=== PATIENT | female | born 1965 | race Caucasian/White ===

== ENCOUNTER 2024-11-13 12:01 | Outpatient (AMB) | payer OTHER, SELFPAY ==
--- NOTE | 2024-11-13 12:13 | MHC.PC.OV ---
Vital Signs 11/13/24 12:18 Height 5 ft 2.32 in Weight 172 lb BMI 31.1 BP 124/74 Blood Pressure Location Lt brachial Position Sitting Pulse 78 Pulse Source Pulse Oximeter Pulse Oximetry (%) 95 Oxygen Delivery Method Room Air Intake Visit Reasons: est/need pcp/medication Allergies No Known Allergies Allergy (Verified 11/13/24 12:13) Dental Screening Dental Screen Date: 11/13/24 Did you have a dental visit in the last 12 months?: Yes Did you have a dental problem in the last 6 months where you did not have access to dental care?: No Was dental information given to patient?: Patient has dentist HPI HPI Comments History of Present Illness Details This is a 58-year-old female with a past medical history of dyslipidemia, generalized anxiety disorder and panic attacks presenting to [facility]. She transferred from [facility] . 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 She has 1 day a week off now. She was previously on Celexa which was ineffective. Wellbutrin was stopped, and she started venlafaxine earlier this year due to increased anxiety. She is on this and clonazepam 0.5 mg daily. This is working well. The earlier this year she had significant anxiety and panic attacks which were affecting the quality of her life. Because of this she would like to stay on the current regimen. She does not feel that she needs therapy or psychiatry consult right now. She endorses left shoulder pain for the past 6 months. It comes and goes. When she has the pain it is a 6/10. She describes it as soreness and aching. It bothers her more to lift her arm up. 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 It hurts more when she does this. Ibuprofen helps but does not completely alleviate the symptoms. There is no numbness, tingling or weakness in her arm. No neck pain. No trauma. Mammogram ordered. She would like to schedule a physical for another day. She will have fasting lab work done prior to this. She had a bone density exam in 2021. She reports it was normal, and she is not interested in repeating it right now. Order mammogram for [facility] Cologuard negative within the last 3 years per patient. Declines colonoscopy. ROS: Constitutional: No fevers or chills Musculoskeletal: See HPI Psychiatric: See HPI. Denies depression. Physical exam: Respiratory: Clear to auscultation. Cardiovascular: S1 S2 regular. No murmurs Psychiatric: Normal mood and affect Shoulders: Right: FROM. Nontender to palpation. Strength 5/5. Negative Speeds test. Negative empty can maneuver. No warmth, erythema, edema, ecchymosis or crepitus. Left: FROM. Tender AC joint. Strength 5/5. Negative Speeds test. Empty can maneuver produces left shoulder pain. No warmth, erythema, edema, ecchymosis or crepitus. [facility] Medical History (Updated 11/13/24 @ 13:52 by YOLA Bethea) Left shoulder pain Dyslipidemia Anxiety Surgical History (Updated 11/13/24 @ 12:22 by Dawn Petty CMA) Hx of tonsillectomy H/O section Family History (Updated 11/13/24 @ 12:25 by Dawn Petty CMA) Father Prostate cancer Heart attack Heart disease Kidney disease Mother H/O angioplasty Heart disease Cardiovascular disease Other Bipolar disorder FH: mental illness HTN (hypertension) Social History Housing: Other (mobile home for over 55) Patient Tobacco Use Status: Former Tobacco user Cigarette Packs Per Day: 1 Years Smoked: 20 e-Cigarette/Vaping Use: Never Used Second Hand Smoke Exposure: No service: No Current occupational status: employed 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 1. Little interest or pleasure in doing things: not at all 2. Feeling down, depressed, or hopeless: not at all 3. Trouble falling or staying asleep, or sleeping too much: several days 4. Feeling tired or having little energy: several days 5. Poor appetite or overeating: not at all 6. Feeling bad about yourself - or that you are a failure or have let yourself or your family down: not at all 7. Trouble concentrating on things, such as reading the newspaper or watching television: not at all 8. Moving or speaking so slowly that other people could have noticed. Or the opposite - being so fidgety or restless that you have been moving around a lot more than usual: not at all 9. Thoughts that you would be better off or of hurting yourself in some way: not at all Total score: 2 Source: Developed by Drs. Sage Almaraz, Cici Nunez, Demetrius Harris and colleagues, with an educational jovanny from [employer]. Thrive Questionnaire I am a: Patient What is your living situation today?: I have a steady place to live Within the past 12 months, did the food you bought not last and you didn't have the money to get more?: Never true Within the past 12 months, did you worry whether your food would run out before you got money to buy more?: Never true Do you have trouble paying for medicines?: No Do you have trouble getting transportation to medical appointments?: No Do you have trouble paying your heating and electricity bill?: No Do you have trouble taking care of your child, family member or friend?: No Do you have trouble with day-to-day activities such as bathing, preparing meals, shopping, managing finances, etc.?: No Are you currently unemployed and looking for a job?: No Are you interested in more education?: No Please select the resources that you would like help with: None Currently or been in a relationship where the following occur: No concerns reported THRIVE Score: 0 AUDIT C Alcohol Use Questionnaire (AUDIT-C) 1. How often do you have a drink containing alcohol?: Never (rarely) Total Score: 0 CAROL-7 AMB Questionnaire CAROL-7 Feeling nervous, anxious, or on edge: 1 = Several days Not being able to stop or control worryin = Several days Worrying too much about different things: 1 = Several days Trouble relaxin = Several days Being so restless that it is hard to sit still: 1 = Several days Becoming easily annoyed or irritable: 1 = Several days Feeling afraid as if something awful might happen: 0 = Not at all Total CAROL-7 score (0-4 normal; 5-9 mild; 10-14 moderate; 15-21 severe): 6 Source: Developed by Cici Quiroga Kurt Kroenke and colleagues, with an educational jovanny from [employer]. Physical exam (Primary Care) Vital Signs: Last Vital Signs Pulse 78 11/13/24 12:18 BP 124/74 11/13/24 12:18 Pulse Ox 95 11/13/24 12:18 Oxygen Delivery Method Room Air 11/13/24 12:18 BMI result Body Mass Index 31.1 Tobacco/Smoking Status: Tobacco use Status Patient Tobacco Use Status Former Tobacco user 11/13/24 12:21 e-Cigarette/Vaping Use Never Used 11/13/24 12:21 PHQ-9: PHQ-9 Score PHQ-9: Total score 2 11/13/24 12:21 Currently or been in a relationship where the following occur: No concerns reported Coding Level of Care Code New Pt Level 4 (94881) Complex EM visit Add On G2211 Diagnoses Anxiety F41.9 Left shoulder pain M25.512 Assessment & Plan Assessment & Plan (1) Anxiety: Code(s): F41.9 - Anxiety disorder, unspecified Category: Medical Plan: Continue current medications. We reviewed the long-term risks of clonazepam. We reviewed it as a habit-forming medication and not to drive, operate heavy machinery drink alcohol with this medication. I will have her sign a controlled substance contract at her next appointment. (2) Left shoulder pain: Code(s): M25.512 - Pain in left shoulder Category: Medical Plan: Reviewed differential including rotator cuff tendonitis and bursitis. She would like to try a short course of meloxicam and try to avoid heavy lifting when possible. She will do home exercises. If symptoms persist I recommend x-ray and referral to Orthopedics. Plan She will schedule her physical exam within the next month. She will have fasting labs done prior to the physical. Orders: Orders Complete Blood Count no Diff Today F41.9 - Anxiety disorder, unspecified, Z00.00 - Encounter for general adult medical examination without abnormal findings, Z13.6 - Encounter for screening for cardiovascular disorders TSH reflex Free T4 Today F41.9 - Anxiety disorder, unspecified, Z00.00 - Encounter for general adult medical examination without abnormal findings, Z13.6 - Encounter for screening for cardiovascular disorders MM screening mammo BI Today Z12.31 - Encounter for screening mammogram for malignant neoplasm of breast Comprehensive Met. Panel Today F41.9 - Anxiety disorder, unspecified, Z00.00 - Encounter for general adult medical examination without abnormal findings, Z13.6 - Encounter for screening for cardiovascular disorders Lipid Panel Today E78.5 - Hyperlipidemia, unspecified, F41.9 - Anxiety disorder, unspecified, Z00.00 - Encounter for general adult medical examination without abnormal findings, Z13.6 - Encounter for screening for cardiovascular disorders Drug Screen Urine Today Z02.83 - Encounter for blood-alcohol and blood-drug test Medications: New meloxicam 15 mg PO DAILY 14 tabs 0RF clonazepam 0.5 mg PO DAILY 30 tabs 0RF
[2024-11-13 12:18] VITALS: BP 124/74; PULSE 78; O2SAT 95; BMI 31.1
--- OUTSIDE RECORDS SUMMARY | 2024-11-13 13:57 | XMS_ITS | Data Portability ---
Author Organization YOLA Ramos [facility] [address] Address [address] [place] [address] Assessment No assessment recorded. Plan of Treatment Reminders Order Date Submit Date Provider Last Modified By Organization Details Last Modified Time Details Appointments None recorded. Lab None recorded. Referral None recorded. Procedures None recorded. Surgeries None recorded. Imaging None recorded. Medication Orders amoxicillin 875 mg-potassiu m clavulanate 125 mg tablet 2023 [id number], [address], [place], [id number], 20:29:05 Patient TargetsNo targets recorded. Patient Instructions Encounter Date Encounter Id Patient Instructions Last Modified By Organization Details Last Modified Time 06/01/2024 [id number] hearing loss: care instructions [email or web address] Not available 06/01/2024 20:28:59 Reason for Referral None Reported. Problems Name Problem SNOMED Code Status Onset Date Resolution Date Notes Provider Name and Address Organization Details Recorded Time Anxiety 35918950 Active HEENA ull[place], [place] - [facility] 4 20:04:52 Depressive disorder 14552594 Active HEENA GIORDANO null, [place] - [facility] 4 20:04:58 Decreased hearing 946940668 Active 024 Kateryna Roa NP [address], [address] , [place] - [facility] 4 20:22:53 Acute bilateral otitis media 380426787 Active 024 Kateryna Roa NP [address] [place], [address], [place] - [facility] 4 20:27:24 Problem Notes None recorded. Medical Equipment None Reported. Allergies No known drug allergies Medications Name Sig Start Date Stop Date Status Note LastModified by Organization Details LastModified Time amoxicillin 875 mg-potassium clavulanate 125 mg tablet Take 1 tablet every 12 hours by oral route for 10 days, for ear infectio n. 024 active Not Available Not Available Not Avai lable clonazepam active Not Available Not Av ailable Not Available Vitals Date Recorded Body height Body mass index (BMI) Body weight Oxygen saturation Oxygen saturation in Arterial blood by Pulse oximetry Heart rate Respiratory rate Body temperature Systolic blood pressure Diastolic blood pressure Provider Name and Address Organization Details Last Updated DateTime 4 160.02 cm 26.6 kg/m2 53543.8 6 g 98 % 98 % 83 /min 18 /min 98 [degF] 163 mm[Hg] 90 mm[Hg] HEENA GIORDANO [place] - [facility] 4 20:03:53 Social History None recorded. Functional Status None recorded. Mental Status None recorded. Family History Nothing Reported. Medical History No medical history recorded. Gynecological History Statement/Question Response LMP N/A Obstetrics History GPAL:G 0 P 0 0 0 0 Past Encounters Encounter ID Performer Location Encounter Start Date Encounter Closed Date Diagnosis/Indication Diagnosis SNOMED-CT Code Diagnosis ICD10 Code Diagnosis Note [id number] [address] [address] [address] 08/17/2017 15:09:26 08/17/2017 16:25:25 [id number] [facility] [address] [address] 08/10/2021 13:05:16 08/10/2021 14:35:30 [id number] [facility] [address] [address] 09/07/2022 15:14:33 09/07/2022 17:19:46 [id number] [address] [address] 03/14/2016 13:27:23 03/14/2016 13:58:29 [id number] Kateryna Roa, AZAM [address] [address] 06/01/2024 19:45:16 06/01/2024 20:29:14 Decreased hearing 475333817 H91.90 Avoid loud noises whenever possible. This helps keep your hearing from getting worse.Alwa ys wear hearing protection around loud noises.Wea r a hearing aid as directed.A profession al can help you pick a hearing aid that will work best for you.You can also get hearing aids over the counter for mild to moderate hearing loss.Have hearing tests as your doctor suggests. They can show whether your hearing has changed. Your hearing aid may need to be adjusted.U se other devices as needed. These may include:Te lephone amplifiers and hearing aids that can connect to a television , stereo, radio, or microphone .Devices that use lights or vibrations . These alert you to the doorbell, a ringing telephone, or a baby monitor.Te levision closed-cap tioning. This shows the words at the bottom of the screen. Most new TVs can do this.TTY (text telephone) . This lets you type messages back and forth on the telephone instead of talking or listening. These devices are also called TDD. When messages are typed on the keyboard, they are sent over the phone line to a receiving TTY. The message is shown on a monitor.Us e text messaging, social media, and email if it is hard for you to communicat e by telephone. Try to learn a listening technique called speechread ing. It is not lipreading . You pay attention to people's gestures, expression s, posture, and tone of voice. These clues can help you understand what a person is saying. Face the person you are talking to, and have them face you. Make sure the lighting is good. You need to see the other person's face clearly.Th ink about counseling if you need help to adjust to your hearing loss. Acute bila teral otitis media 823533488 H66.93 Based on your Presentati on, Exam, and Lab Testing you are being diagnosed with otitis media I am going to prescribe you and antibiotic to cover this infection. Please be sure to complete the full course of this antibiotic to prevent antibiotic resistance . It is also important to complete this antibiotic because this infection is what causes Scarlet Fever/Rheu matic Heart Disease. Antibiotic s will typically take 4-5 days to start to work with symptom improvemen t. The following are my other recommenda tions to help with symptoms and is important for this diagnosis: 1. Take Ibuprofen or Tylenol if you do not have any allergies to these medication s. If you take a blood thinner you should not take NSAIDS like Ibuprofen. These medication will help with the inflammati on in your respirator y tract which should help the cough. (I would alternate between Tylenol 650 mg and your Ibuprofen 600 mg every 4 hours)2. Do not take any Cold Medication s that have a Decongesta nt in it - this will dry out your throat and make the sore throat worse.3. Drinking Hot Tea with honey can help coat and soothe your throat. I would be seen again if you develop any of the following symptoms.1 . Fever > 101.02. Stiff neck - where you can't turn your neck3. Trouble swallowing your saliva - drooling4. Swelling of a lymph node in your throat that is painful to touch5. Difficulty breathing6 . Severe Headache Thank you for using [facility] today, please feel free to contact our office if you have any questions or concerns. Health Concerns Section Related Observation LastModified by Organization Stephen diez LastModified Time None Recorded Concern Status LastModified by Organization Details LastModified Time None Recorded Advance Directives Directive None Recorded Payers Encounter Date Sequence Insurance Name Policy Number Policy Huynh Covered Member ID Huynh Member ID Guarantor Name 03/14/2016 1 [facility] [id number] 1 Leonor L L [place] [id number] Leonor L Go 08/17/2017 1 [facility] [id number] 1 Leonor L L Go [id number] Leonor L Go 08/10/2021 1 [facility] [id number] 1 Leonor L L Go [id number] Leonor L [place] 09/07/2022 1 [facility] [id number] 1 [place]or L L [place] [id number] Leonor L Go 06/01/2024 1 [facility] [id number] 1 Leonor L L Go [id number] Leonor L [place] Notes Date Note Type Note Provider Name and Address Organization Details Recorded Time 4 text/html Ear problem UCReported bypatient.source of patient informationInformation obtained from patient; Patient arrived at Urgent Care ambulatory Location:bilateral Quality:clogged;decreased hearing Severity:moderate Duration:started ; 2 days Context:no recent swimming/water in ear; no recent air travel Modifying Factors:does not hurt to lie on, or pull on ear; does not hurt to chew Associated Symptoms:popping noise in the ears Was on an airplane yesterday and ever since both ears feel blocked and muffled. Kateryna Roa NP [address] [facility] [place], [address], [place] - [facility] 06/28/2024 09:33:33 OBGyn Episode No OBEpisode recorded.
== END 2024-11-13 12:54 | disposition home or self-care (01) ==
PROVIDERS: PCP Physician Assistant Medical; Visit Provider Physician Assistant Medical
DX: F41.9 Anxiety disorder, unspecified (principal); M25.512 Pain in left shoulder

== ENCOUNTER 2025-01-24 14:12 | Outpatient (REF) | payer OTHER, SELFPAY ==
[2025-01-24 18:27] LABS: Amphetamine Screen Urine Not Detected (Not Detect); Barbiturates, Urine Not Detected (Not Detect); Benzodiazepines Screen Urine Not Detected (Not Detect); Buprenorphine Scr Not Detected (Not Detect); Cannabinoid Screen Urine Not Detected (Not Detect); Cocaine Screen Urine Not Detected (Not Detect); Fentanyl, urine Not Detected (Not Detect); Methadone Screen, Urine Not Detected (Not Detect); Opiate Screen Urine Not Detected (Not Detect); Oxycodone Screen Urine Not Detected (Not Detect); Phencyclidine Screen Urine Not Detected (Not Detect)
[2025-01-24 18:30] LABS: Hematocrit 38.9 % (37.0-47.0); Hemoglobin 12.3 g/dl (12.0-16.0); Mean Corpuscular HGB Conc 31.6 g/dl (31.0-35.0); Mean Corpuscular Hemoglobin 27.5 pg (27.0-33.0); Mean Platelet Volume 8.8 fL (9.4-12.3); Platelet Count 345 X10*3/uL (160-400); Red Blood Count 4.47 X10*6/uL (4.20-5.50); White Blood Count 4.1 X10*3/uL (4.8-10.8)
[2025-01-24 19:02] LABS: Alanine Aminotransferase 26 U/L (0-31); Albumin Level 4.3 g/dL (3.5-5.0); Alkaline Phosphatase 53 U/L (39-117); Anion Gap 11 (12-20); Aspartate Amino Transferase 24 U/L (5-31); Bilirubin Total 0.4 mg/dL (0.0-1.0); Blood Urea Nitrogen 13 mg/dL (9-16); Calcium 9.3 mg/dL (8.4-10.2); Carbon Dioxide 27 mmol/L (22-29); Chloride 108 mmol/L (96-108); Cholesterol 255 mg/dL (<200); Estimated Glomerular Filt Rate > 60; Glucose Random 94 mg/dL (60-115); HDL Cholesterol 66 mg/dL (>40); LDL Cholesterol Calculated 174 mg/dL (<100); Potassium 4.2 mmol/L (3.3-5.1); Sodium 142 mmol/L (135-145); Total Protein 7.6 g/dL (6.5-8.0); Triglycerides 79 mg/dL (<150)
[2025-01-24 19:18] LABS: TSH reflex Free T4 0.54 uIU/mL (0.32-4.0)
== END 2025-01-24 14:13 | disposition home or self-care (01) ==
LOC: HO.WFDLDS 14:12
PROVIDERS: Visit Provider Physician Assistant Medical
DX: Z00.00 Encounter for general adult medical examination without abnormal findings (principal); Z13.6 Encounter for screening for cardiovascular disorders; F41.9 Anxiety disorder, unspecified; E78.5 Hyperlipidemia, unspecified; Z13.89 Encounter for screening for other disorder
CPT/HCPCS: 80053; 80061; 80307; 84443; 85027

== ENCOUNTER 2025-01-25 08:21 | Outpatient (AMB) | payer OTHER, SELFPAY ==
--- NOTE | 2025-01-25 08:25 | MHC.PC.OV ---
Vital Signs 01/25/25 08:32 Height 5 ft 2.32 in Weight 173 lb BMI 31.3 BP 149/72 H Blood Pressure Location Lt brachial Position Sitting Respiration 16 Pulse 90 Pulse Source Pulse Oximeter Temp 97.7 F Temp Source Oral Pulse Oximetry (%) 97 Oxygen Delivery Method Room Air Intake Visit Reasons: Physical Exam Intake Note: patient here for CPE Nursing Information Systems Coordinator Required: No Is last menstrual period known: No Post menopausal: No Patient : No Allergies No Known Allergies Allergy (Verified 01/25/25 08:30) Tobacco use date assessed: 01/25/25 Dental Screening Dental Screen Date: 01/25/25 Did you have a dental visit in the last 12 months?: Yes Did you have a dental problem in the last 6 months where you did not have access to dental care?: No Was dental information given to patient?: Patient has dentist HPI HPI Comments History of Present Illness Details This is a 59-year-old female with a past medical history of dyslipidemia, generalized anxiety disorder and panic attacks presenting for a physical exam.. 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 She has 1 day a week off now. She was previously on Celexa which was ineffective. Wellbutrin was stopped, and she started venlafaxine earlier this year due to increased anxiety. She is on this and clonazepam 0.5 mg daily. She has a history of panic attacks related to this which affected the quality of her life. She would like to know if she can increase clonazepam to a 1 mg tablet and take half to a full tablet as needed because sometimes she still has a panic attack or significant anxiety. Her blood pressure is elevated today. She has no chest pain, shortness of breath, dizziness, headaches or vision changes. Patient had cup of coffee before the appointment, and she says that she is getting a lot of texts from the daycare this morning which is making her stressed. She does not have a history of hypertension. She is a former smoker. She smoked 1 pack per day for 12 years. She does not qualify for LDCT. Her left shoulder pain is stable. She defers referral for PT or orthopedic management right now. She has been doing home stretches. There has been no change in symptoms. She will have an x-ray done. We discussed that her LDL cholesterol is very high. Her 10 year ASCVD risk score is 9.1%. Her white blood cell count was mildly decreased. She believes this has happened in the past sometimes. Denies recent infections, fevers, chills or increased fatigue. Mammogram ordered. She would like to schedule a physical for another day. She will have fasting lab work done prior to this. On review of systems she notes intermittent bloating in her upper abdomen. She is not sure if it is certain foods that cause it. No vomiting, diarrhea, blood in stools, stool changes, unexplained weight loss. Liver function tests were normal. She had a bone density exam in 2021. She reports it was normal, and she is not interested in repeating it right now. [place] [facility] [place] Cologuard negative within the last 3 years per patient. Declines colonoscopy. She will schedule her annual [employer] SAL[employer]EC[employer] appointment with [facility] [place]. ROS: Constitutional: No unexplained weight loss, fever, chills, increased fatigue or night sweats. Eyes: No vision changes, blurry vision, double vision, eye pain, eye redness, eye discharge. ENT: No hearing loss, sneezing, congestion, runny nose or sore throat. Respiratory: No shortness of breath, cough or sputum production. Denies hemoptysis. Cardiovascular: No chest pain, chest pressure or chest discomfort. No palpitations or pedal edema. Gastrointestinal: No anorexia, nausea, vomiting or diarrhea. No abdominal pain or blood in stool. Denies acid reflux. Genitourinary: No dysuria, hematuria, urinary frequency. Neurologic: No headache, dizziness, syncope, unilateral weakness, ataxia, numbness or tingling in the extremities. Musculoskeletal: +left shoulder pain Hematologic/Lymphatics: No bleeding or bruising. No painful lymph nodes. Skin: No rash or new or changing skin lesions or moles Endocrine: No cold or heat intolerance. No polyuria or polydipsia. Psychiatric: See HPI Physical exam: Constitutional: Alert, in no distress. Eyes: Pupils are equal, round and reactive to light. Extraocular muscles intact. Ear, Nose and Throat: Canals clear. TMs normal. Normal nasal mucosa. No nasal discharge. No oral lesions. Neck: Supple, Full range of motion. No lymphadenopathy. No palpable thyroid masses. Respiratory: Clear to auscultation. Cardiovascular: S1 S2 regular. No murmurs. No carotid bruits. Gastrointestinal: Abdomen soft, non-tender, non-distended. Normal bowel sounds. No palpable masses. No rebound or guarding. Neurologic: No focal neurological deficits. Symmetric patellar reflexes. Moves all extremities spontaneously. Sensation intact bilaterally. Skin: No rashes Musculoskeletal: No gross deformities. Normal range of motion. Extremities: Warm and well perfused. No clubbing, cyanosis or edema. Symmetric peripheral pulses bilaterally. Psychiatric: Normal mood and affect Shoulders: Right: FROM. Nontender to palpation. Strength 5/5. Negative Speeds test. Negative empty can maneuver. No warmth, erythema, edema, ecchymosis or crepitus. Left: FROM. Tender AC joint. Strength 5/5. Negative Speeds test. Empty can maneuver produces left shoulder pain. No warmth, erythema, edema, ecchymosis or crepitus. [facility] Medical History (Updated 01/25/25 @ 13:40 by YOLA Bethea) Routine physical examination Bloating Decreased white blood cell count Left shoulder pain Dyslipidemia Anxiety Surgical History (Updated 11/13/24 @ 12:22 by Dawn Petty CMA) Hx of tonsillectomy H/O section Family History (Updated 11/13/24 @ 12:26 by Dawn Petty CMA) Father Prostate cancer Heart attack Heart disease Kidney disease Mother H/O angioplasty Heart disease Cardiovascular disease Other Bipolar disorder FH: mental illness HTN (hypertension) Social History Housing: Other (mobile home for over 55) Patient Tobacco Use Status: Former Tobacco user Cigarette Packs Per Day: 1 Years Smoked: 20 e-Cigarette/Vaping Use: Never Used Second Hand Smoke Exposure: No service: No Current occupational status: employed 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 1. Little interest or pleasure in doing things: not at all 2. Feeling down, depressed, or hopeless: not at all 3. Trouble falling or staying asleep, or sleeping too much: more than half the days 4. Feeling tired or having little energy: more than half the days 5. Poor appetite or overeating: more than half the days 6. Feeling bad about yourself - or that you are a failure or have let yourself or your family down: not at all 7. Trouble concentrating on things, such as reading the newspaper or watching television: not at all 8. Moving or speaking so slowly that other people could have noticed. Or the opposite - being so fidgety or restless that you have been moving around a lot more than usual: not at all 9. Thoughts that you would be better off or of hurting yourself in some way: not at all Total score: 6 Depression Screening Interpretation: Positive Depression Screening Follow-up: Existing condition and In treatment Depression Screening Done: Yes 52832 - PHQ-9 Billing: Yes Source: Developed by Drs. Sage Almaraz, Cici Nunez, Demetrius Harris and colleagues, with an educational jovanny from [employer]. Thrive Questionnaire Date Thrive assessed: 01/25/25 I am a: Patient What is your living situation today?: I have a steady place to live Within the past 12 months, did the food you bought not last and you didn't have the money to get more?: Never true Within the past 12 months, did you worry whether your food would run out before you got money to buy more?: Never true Do you have trouble paying for medicines?: No Do you have trouble getting transportation to medical appointments?: No Do you have trouble paying your heating and electricity bill?: No Do you have trouble taking care of your child, family member or friend?: No Do you have trouble with day-to-day activities such as bathing, preparing meals, shopping, managing finances, etc.?: No Are you currently unemployed and looking for a job?: No Are you interested in more education?: No Please select the resources that you would like help with: None Currently or been in a relationship where the following occur: No concerns reported THRIVE Score: 0 AUDIT C Alcohol Use Questionnaire (AUDIT-C) 1. How often do you have a drink containing alcohol?: Never 3. How often do you have six or more drinks on one occasion?: Never Total Score: 0 CAROL-7 AMB Questionnaire CAROL-7 Date CAROL - 7 assessed: 01/25/25 Feeling nervous, anxious, or on edge: 2 = More than half the days Not being able to stop or control worryin = Several days Worrying too much about different things: 1 = Several days Trouble relaxin = Several days Being so restless that it is hard to sit still: 1 = Several days Becoming easily annoyed or irritable: 0 = Not at all Feeling afraid as if something awful might happen: 0 = Not at all Total CAROL-7 score (0-4 normal; 5-9 mild; 10-14 moderate; 15-21 severe): 6 Source: Developed by Drs. Sage Almaraz, Cici Nunez, Demetrius Harris and colleagues, with an educational jovanny from [employer]. CAROL-7 Assessment Billing CAROL-7 Assessment Tool: CAROL-7 Assessment 21398 Physical exam (Primary Care) Vital Signs: Last Vital Signs Temp 97.7 F 01/25/25 08:32 Pulse 90 01/25/25 08:32 Resp 16 01/25/25 08:32 BP 149/72 H 01/25/25 08:32 Pulse Ox 97 01/25/25 08:32 Oxygen Delivery Method Room Air 01/25/25 08:32 BMI result Body Mass Index 31.3 Tobacco/Smoking Status: Tobacco use Status Tobacco use date assessed 01/25/25 01/25/25 08:31 Patient Tobacco Use Status Former Tobacco user 01/25/25 08:28 e-Cigarette/Vaping Use Never Used 01/25/25 08:28 PHQ-9: PHQ-9 Score PHQ-9: Total score 6 01/25/25 13:30 Depression Screening Interpretation: Positive Depression Screening Follow-up: Existing condition and In treatment Thrive Assessment: Date of Thrive Assessment Date Thrive assessed 01/25/25 01/25/25 08:35 Currently or been in a relationship where the following occur: No concerns reported Coding Level of Care Code Est Pt Prev Care 40-64y(81122) Diagnoses Anxiety F41.9 Left shoulder pain M25.512 Routine physical examination Z00.00 Bloating R14.0 Decreased white blood cell count D72.819 Dyslipidemia E78.5 Additional Codes CAROL-7 Assessment Billing - CAROL-7 Assessment Tool: CAROL-7 Assessment 65531 ([id number]) PHQ-9 - 15364 - PHQ-9 Billing: Yes ([id number]) Assessment & Plan Assessment & Plan (1) Anxiety: Code(s): F41.9 - Anxiety disorder, unspecified Category: Medical Plan: She can increase clonazepam to 0.5 to 1 mg daily as needed for anxiety and panic attack. We reviewed the long-term risks of clonazepam. We reviewed it as a habit-forming medication and not to drive, operate heavy machinery drink alcohol with this medication. Urine drug screen negative. CSA form was not available today so she will sign this at her follow up appointment. Continue Effexor. (2) Left shoulder pain: Code(s): M25.512 - Pain in left shoulder Category: Medical Plan: She will have the x-ray done. She defers referral to PT and Orthopedics at this time. (3) Routine physical examination: Code(s): Z00.00 - Encounter for general adult medical examination without abnormal findings Category: Medical Plan: Patient is seen today for a routine physical. 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 exam - Screening for colon cancer - Blood pressure screening - Cholesterol screening - Osteoporosis prevention including calcium/vitamin D intake, weight bearing exercise & smoking cessation - Nutritional and exercise counseling - Counseling of injury prevention including fire prevention, smoke alarms and seat belt usage - Screening for depression - Prevention of and/or testing for infectious diseases - Education about skin cancer - Recommendations about immunizations- patient declines all vaccinations for which she is due - Recommendation of an eye exam - Screening for substance abuse (4) Bloating: Code(s): R14.0 - Abdominal distension (gaseous) Category: Medical Plan: LFTs normal. No associated symptoms. No unexplained weight loss or other worrisome constitutional symptoms. Check abdominal ultrasound and pancreatic enzymes. Try to keep food journal to see if certain foods are causing bloating. We will follow up once I have the ultrasound result. (5) Decreased white blood cell count: Code(s): D72.819 - Decreased white blood cell count, unspecified Category: Medical Plan: Repeat CBC with differential in 6-8 weeks. (6) Dyslipidemia: Code(s): E78.5 - Hyperlipidemia, unspecified Category: Medical Plan: Recommended starting cholesterol-lowering medication. Reviewed ASCVD risk score with the patient. She would like to defer medication for now and try lifestyle modifications. Recommended Mediterranean diet and exercising regularly did promote healthy weight and lower cholesterol. Increase fiber in the diet. Avoid smoking and alcohol. We will recheck in 3 months. Plan Follow up in 3 months. Orders: Orders XR shoulder LT min 2V Today M25.512 - Pain in left shoulder Lipid Panel 3 Months E78.5 - Hyperlipidemia, unspecified Lipase Today R14.0 - Abdominal distension (gaseous) Complete Blood Count Man Dif Today D72.819 - Decreased white blood cell count, unspecified US abdomen complete Today R14.0 - Abdominal distension (gaseous) Amylase Today R14.0 - Abdominal distension (gaseous) Medications: New clonazepam 1 mg PO DAILY PRN 30 tabs 0RF anxiety Discontinued clonazepam Discontinued Reason: Doctor's Order 0.5 mg PO DAILY 30 tabs 0RF
[2025-01-25 08:32] VITALS: BP 149/72; PULSE 90; RESP 16; TEMP 36.5; O2SAT 97; BMI 31.3
== END 2025-01-25 09:18 | disposition home or self-care (01) ==
LOC: HO.HMCFM 08:23
PROVIDERS: PCP Physician Assistant Medical; Visit Provider Physician Assistant Medical
DX: F41.9 Anxiety disorder, unspecified (principal); M25.512 Pain in left shoulder; Z00.00 Encounter for general adult medical examination without abnormal findings; R14.0 Abdominal distension (gaseous); D72.819 Decreased white blood cell count, unspecified; E78.5 Hyperlipidemia, unspecified

== ENCOUNTER → 2025-01-25 08:21 | Outpatient (BNVA) | payer OTHER, SELFPAY | PROVIDERS: PCP Physician Assistant Medical; Visit Provider Physician Assistant Medical | DX: Z00.00 Encounter for general adult medical examination without abnormal findings (principal); E78.5 Hyperlipidemia, unspecified; F41.9 Anxiety disorder, unspecified; M25.512 Pain in left shoulder; R14.0 Abdominal distension (gaseous); D72.819 Decreased white blood cell count, unspecified | CPT/HCPCS: 96127 ==

== ENCOUNTER 2025-03-07 14:16 | Outpatient (REF) | payer OTHER, SELFPAY ==
--- NOTE | ~2025-03-07 | XR_ITS ---
EXAMINATION: XR SHOULDER 2 OR MORE VIEWS LEFT HISTORY: M25.512 - Pain in left shoulder COMPARISON: There are no prior studies available for comparison. FINDINGS: Three views of the left shoulder are submitted. Osseous mineralization is normal. There is no fracture or dislocation. The glenohumeral and acromioclavicular joints are maintained. And amorphous calcification adjacent to the greater tuberosity of the humerus is likely related to the rotator cuff. XR/XR shoulder LT min 2V IMPRESSION: Probable rotator cuff calcification. Electronically signed by: Sage Gama MD 03/08/2025 01:32 PM EDT
--- OUTSIDE RECORDS SUMMARY | 2025-03-07 15:38 | XMS_ITS | Data Portability ---
Author Organization YOLA Ramos tawanna [address] Address [address] [place] [address] Assessment No assessment recorded. Plan of Treatment Reminders Order Date Submit Date Provider Last Modified By Organization Details Last Modified Time Details Appointments None recorded. Lab None recorded. Referral None recorded. Procedures None recorded. Surgeries None recorded. Imaging None recorded. Medication Orders amoxicillin 875 mg-potassiu m clavulanate 125 mg tablet 2023 [id number], [address], [place], [id number], 20:29:05 Patient TargetsNo targets recorded. Patient Instructions Encounter Date Encounter Id Patient Instructions Last Modified By Organization Details Last Modified Time 06/01/2024 [id number] hearing loss: care instructions [email or web address] Not available 06/01/2024 20:28:59 Reason for Referral None Reported. Problems Name Problem SNOMED Code Status Onset Date Resolution Date Notes Provider Name and Address Organization Details Recorded Time Anxiety 20846950 Active HEENA [place], [place] - [facility] 4 20:04:52 Depressive disorder 20133012 Active HEENA GIORDANO null, [place] - [facility] 4 20:04:58 Decreased hearing 526069976 Active 024 Kateryna Roa NP [address] [place], [address] , [place] - [facility] 4 20:22:53 Acute bilateral otitis media 306680865 Active 024 Kateryna Roa NP [address] [place], [address] , [place] - [facility] 4 20:27:24 Problem [...] Updated DateTime 4 160.02 cm 26.6 kg/m2 53316.8 6 g 98 % 98 % 83 [...] SNOMED-CT Code Diagnosis ICD10 Code Diagnosis Note [id number] [address] [address] 08/17/2017 15:09:26 08/17/2017 16:25:25 [id number] [facility] [address] [address] 08/10/2021 13:05:16 08/10/2021 14:35:30 [id number] [facility] [address] [address] 09/07/2022 15:14:33 09/07/2022 17:19:46 [id number] [address] [facility] [address] [place] [address] 03/14/2016 13:27:23 03/14/2016 13:58:29 [id number] Kateryna Roa NP [address] [address] 06/01/2024 19:45:16 06/01/2024 20:29:14 Decreased hearing 478494992 H91.90 Avoid loud noises whenever possible. This [...] hearing loss. Acute bila teral otitis media 179308955 H66.93 Based on your Presentati on, Exam, [...] . Severe Headache Thank you for using [facility] today, please feel free to contact our office if you have any questions or concerns. Health Concerns Section Related Observation LastModified by Organization Detai ls LastModified Time None Recorded Concern Status LastModified by Organization Details LastModified Time None Recorded Advance Directives Directive None Recorded Payers Encounter Date Sequence Insurance Name Policy Number Policy Huynh Covered Member ID Huynh Member ID Guarantor Name 03/14/2016 1 [facility] [id number] 01 Leonor [place]olly [place] [id number] Leonor [place]olly [place] 08/17/2017 1 [facility] [id number] 01 [place]or [place] [id number] Leonor L [place] 08/10/2021 1 [facility] [id number] 01 Leonor Connolly [place] [id number] Leonor L [place] 09/07/2022 1 [facility] [id number] 01 Leonor L L [place] [id number] Leonor Stiles 06/01/2024 1 [facility] [id number] 01 Leonor Stiles [id number] Leonor tSiles Notes Date Note Type Note Provider Name [...] blocked and muffled. Kateryna Roa NP [address] [place], [address], [place] - [facility] 06/28/2024 09:33:33 OBGyn Episode No OBEpisode recorded.
== END 2025-03-07 14:17 | disposition home or self-care (01) ==
LOC: HO.HMGCX 14:16
PROVIDERS: PCP Physician Assistant Medical; Visit Provider Physician Assistant Medical
DX: M25.512 Pain in left shoulder (principal)
CPT/HCPCS: 73030

== ENCOUNTER → 2025-03-07 14:25 | Outpatient (BNV) | payer OTHER, SELFPAY | PROVIDERS: PCP Physician Assistant Medical; Visit Provider Radiology Diagnostic Radiology | DX: M25.512 Pain in left shoulder (principal) | CPT/HCPCS: 73030 ==

== ENCOUNTER 2025-05-07 09:55 | Outpatient (REF) | payer OTHER, SELFPAY ==
--- NOTE | ~2025-05-07 | US_ITS ---
CLINICAL HISTORY: R14.0 - Abdominal distension (gaseous) US abdomen complete with color Doppler Comparison: None Findings: The visualized pancreas, aorta, and inferior vena cava are unremarkable. Liver normal size and mildly echogenic. Right lobe 16.9 cm length. No focal hepatic masses. Common duct 9.2 mm diameter. Physiologic distention of the gallbladder. No gallstones or sludge. No gallbladder wall thickening. No pericholecystic fluid. No sonographic York sign. Main portal vein antegrade. Right kidney normal size, 10.4 cm in length. Normal cortical width and echotexture. No solid or cystic renal masses. No nephrolithiasis. No hydronephrosis. Left kidney normal, 10.9 cm in length. Normal cortical width and echotexture. No solid or cystic renal masses. No nephrolithiasis. No hydronephrosis. Spleen measures 8.5 cm. No splenic masses. No ascites. No lymphadenopathy. Impression: 1. Hepatic steatosis. 2. No cholelithiasis or evidence of cholecystitis. 3. Dilated common bile duct without sonographic evidence of choledocholithiasis. MRI/MRCP of the abdomen with and without intravenous contrast may be of further diagnostic value. This document has been electronically signed by: Issa Justin MD on 05/09/2025 09:36:53
--- OUTSIDE RECORDS SUMMARY | 2025-05-07 10:29 | XMS_ITS | Patient Health Record ---
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 Name Role Phone Justyna Taylor NP Primary Care Provider Unavailabl e Black, Lara Unavailable [phone] Reason For Referral No Information Medications Medication SIG (Take, Route, Frequency, Duration) Notes Start Date End Date Status Doxycycline Monohydrate 100 MG Oral; Duration: 30 Active clonazePAM 1 MG 1 tablet at bedtime Orally Once a day Active Clotrimazole-Betamethason e 1-0.05 % External; Duration: 15 Activ e valACYclovir HCl 1 GM Oral; Duration: 1 prn Active Citalopram Hydrobromide 20 MG 1 tablet Orally Once a day; Duration: 30 day(s) Not-Taking LamISIL 250 MG 1 tablet Orally Once a day for 7 days stop for 3 weeks repeat cycle 12 months; Duration: 365 days 11/25/2018 Active Cetirizine HCl 10 MG Oral; Duration: 30 Not-Taking Ketoconazole 2 % External; Duration: 15 Not-Taking Fluocinonide 0.05 % External; Duration: 15 Not-Taking Chantix Starting Month Chuck 0.5 MG X 11 & 1 MG X 42 Oral; Duration: 28 Not-Takin g Chantix Continuing Month Chuck 1 MG Oral; Duration: 28 Not-Takin g Social History Tobacco Use: Social History Observation Description Date Details (start date - stop date) Former Smoker NA - NA Tobacco Use/Smoking Question Answer Notes Are you a: former smoker Additional Findings: Tobacco Non-User Current no n-smoker Alcohol Screen Question Answer Notes Did you have a drink containing alcohol in the p ast year? No Points 0 Interpretation Negative Tobacco use other than smoking: Question Answer Notes Are you an other tobacco user? No Problems No Known Problems Plan Of Treatment Pending Test Test Name Order Date *Liver Function Test (LFT) 07/25/2012 *Liver Function Test (LFT) 11/24/2018 [id number] NAIL, 6 OR MORE 03/27/2013 [id number] Destruction, 1-14 11/24/2018 Insurance Providers Payer Name Payer Address Payer Phone Subscriber Number Group Number Insured Name Patient Relationship to Insured Coverage Start Date Coverage End Date [facility] [address] [place] [address] [id number] Donaldo Stiles Spouse - patient is the spouse of the insured Medical (General) History Medical History History ICD Code anxiety depression chicken pox Surgical History Surgery Date(Month/Year) section 07/28/1991 tonsillectomy and adenoidectomy 12/1969
[2025-05-07 13:13] LABS: MANUAL DIFF FLAG NO
[2025-05-07 13:26] LABS: Basophils Absolute Auto 0.1 X10*3/uL (0.0-0.2); Basophils Percent Auto 1.2 % (0-2); Eosinophils Absolute Auto 0.1 X10*3/uL (0.0-0.4); Eosinophils Percent Auto 3.4 % (0-4); Hemoglobin 12.1 g/dl (12.0-16.0); Imm Gran Abs Auto 0.01 X10*3/uL (0.00-0.03); Imm Gran Pct Auto 0.2 % (0.0-0.4); Lymphocytes Absolute Auto 1.5 X10*3/uL (1.2-4.9); Mean Corpuscular HGB Conc 31.8 g/dl (31.0-35.0); Mean Corpuscular Hemoglobin 28.4 pg (27.0-33.0); Mean Corpuscular Volume 89.2 fL (80.0-98.0); Mean Platelet Volume 8.7 fL (9.4-12.3); Monocytes Absolute Auto 0.4 X10*3/uL (0.1-1.2); Monocytes Percent Auto 10.1 % (2-11); Neutrophils Absolute Auto 2.1 x10*3/uL (2.0-8.3); Neutrophils Percent Auto 49.1 % (45-73); Platelet Count 357 X10*3/uL (160-400); Red Blood Count 4.26 X10*6/uL (4.20-5.50); Red Cell Distribution Width 14.5 % (11.0-16.0); White Blood Count 4.2 X10*3/uL (4.8-10.8)
[2025-05-07 14:10] LABS: Alanine Aminotransferase 32 U/L (0-31); Albumin Level 4.5 g/dL (3.5-5.0); Alkaline Phosphatase 56 U/L (39-117); Anion Gap 14 (12-20); Aspartate Amino Transferase 32 U/L (5-31); Bilirubin Total 0.3 mg/dL (0.0-1.0); Blood Urea Nitrogen 11 mg/dL (9-16); Calcium 9.3 mg/dL (8.4-10.2); Carbon Dioxide 27 mmol/L (22-29); Chloride 107 mmol/L (96-108); Cholesterol 267 mg/dL (<200); Estimated Glomerular Filt Rate > 60; Glucose Random 105 mg/dL (60-115); HDL Cholesterol 64 mg/dL (>40); Iron 53 mcg/dL (30-160); LDL Cholesterol Calculated 189 mg/dL (<100); Lipase 20 U/L (8-78); Magnesium 1.9 mg/dL (1.6-2.6); Percent Iron Saturation 15 % (15-50); Potassium 4.5 mmol/L (3.3-5.1); Sodium 143 mmol/L (135-145); Total Iron Binding Capacity 362 mcg/dL (228-428); Total Protein 7.1 g/dL (6.5-8.0); Triglycerides 72 mg/dL (<150); Unsaturated Iron Binding 309 ug/dL
[2025-05-07 14:14] LABS: Amylase 65 U/L (28-100); Ferritin 10 ng/mL (10-250); TSH reflex Free T4 0.87 uIU/mL (0.32-4.0)
[2025-05-07 14:16] LABS: Vitamin B12 322 pg/mL (200-900)
[2025-05-08 10:04] LABS: Lyme Blot 2.17 index
[2025-05-08 12:06] LABS: Lyme Abs Screen POSITIVE
[2025-05-10 12:14] LABS: Vitamin D 25-OH, D2 <4 ng/mL; Vitamin D 25-OH, D3 24 ng/mL; Vitamin D 25-OH, Total 24 ng/mL (30-100)
[2025-05-10 19:39] LABS: 18 KD (IgG) Band NON-REACTIVE; 23 KD (IgG) Band NON-REACTIVE; 23 KD (IgM) Band NON-REACTIVE; 28 KD (IgG) Band NON-REACTIVE; 30 KD (IgG) Band NON-REACTIVE; 39 KD (IgM) Band REACTIVE; 39KD (IgG) Band NON-REACTIVE; 41 KD (IgM) Band NON-REACTIVE; 41KD (IgG) Band REACTIVE; 45 KD (IgG) Band NON-REACTIVE; 58 KD (IgG) Band REACTIVE; 66 KD (IgG) Band NON-REACTIVE; 93 KD (IgG) Band NON-REACTIVE; Lyme IgG Blot Interp NEGATIVE (NEGATIVE); Lyme IgM Blot Interp NEGATIVE (NEGATIVE)
== END 2025-05-07 09:56 | disposition home or self-care (01) ==
LOC: HO.HMGCX 09:55
PROVIDERS: PCP Physician Assistant Medical; Visit Provider Physician Assistant Medical
DX: R14.0 Abdominal distension (gaseous) (principal); M85.80 Other specified disorders of bone density and structure, unspecified site; R53.83 Other fatigue; D72.819 Decreased white blood cell count, unspecified; D64.9 Anemia, unspecified; E78.5 Hyperlipidemia, unspecified
CPT/HCPCS: 36415; 76700; 80053; 80061; 82150; 82306; 82607; 82728; 82746; 83540; 83690; 83735; 84443; 85025; 86617; 86618

== ENCOUNTER → 2025-05-07 09:59 | Outpatient (BNV) | payer OTHER, SELFPAY | PROVIDERS: PCP Physician Assistant Medical; Visit Provider Radiology Diagnostic Radiology | DX: R14.0 Abdominal distension (gaseous) (principal) | CPT/HCPCS: 76700 ==

== ENCOUNTER 2025-06-28 08:20 | Outpatient (REF) | payer OTHER, SELFPAY ==
--- NOTE | ~2025-06-28 | XR_ITS ---
EXAMINATION: XR SHOULDER, LEFT CLINICAL INFORMATION: M25.512 - Pain in left shoulder COMPARISON: March 07, 2025 TECHNIQUE: AP external rotation, Grashey, scapular Y, and axillary views of the left shoulder. FINDINGS: No acute cortical disruption or malalignment. There is a focal 8 mm calcification at the supraspinatus tendon insertion. Mild sclerosis along the articular surface of the glenohumeral joint. No lytic or blastic lesions. XR/XR shoulder LT min 2V IMPRESSION: Calcific tendinosis/tendinopathy, supraspinatus. Osteoarthritis/osteoarthrosis, glenohumeral joint. Electronically signed by: Eric Thomas MD 06/28/2025 01:50 PM EDT
--- OUTSIDE RECORDS SUMMARY | 2025-06-28 09:04 | XMS_ITS | Patient Health Record ---
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 Name Role Phone Justyna Taylor NP Primary Care Provider Unavailabl e Black, Lara Unavailable [phone] Reason For Referral No Information Medications Medication [...] (LFT) 07/25/2012 *Liver Function Test (LFT) 11/24/2018 [id number] NAIL, 6 OR MORE 03/27/2013 [id number] Destruction, 1-14 11/24/2018 Insurance Providers Payer Name Payer Address Payer Phone Subscriber Number Group Number Insured Name Patient Relationship to Insured Coverage Start Date Coverage End Date [facility] [address] [place] [address] [id number] Donaldo Stiels Spouse - patient is the spouse of the insured Medical (General) History Medical History History ICD Code anxiety depression chicken pox Surgical History Surgery Date(Month/Year) section 07/28/1991 tonsillectomy and adenoidectomy 12/1969
--- OUTSIDE RECORDS SUMMARY | 2025-06-28 09:04 | XMS_ITS | Clinical Summary ---
Author Organization [facility] Address [address] [facility] [address] [place] [address] Phone Care Team Providers Care Warper Tender Name Role Phone Justyna Taylor Mohsen CIRCUS HAND Unavailable [phone] Jasmine Hood MD Unavailable Unavai lable Unknown, Unknown Primary Care Provider Kamilavai lable Allergies No known active allergies Medications valACYclovir (VALTREX) 1000 MG tabletIndicatio ns:prn Take 1 g by mouth 2 (two) times a day. Indications: prn Active cyanocobalamin, vitamin B-12, (VITAMIN B12 ORAL) Take 500 mg by mouth 2 (two) times a day. Active ELDERBERRY FRUIT ORAL Take by mouth. Active citalopram (CELEXA) 10 MG tabletIndicatio ns:Anxiety TAKE 1 AND 1/2 TABLETS(15 MG) BY MOUTH DAILY 135 tablet 3 05/28/2022 Active clonazePAM (KLONOPIN) 0.5 MG tabletIndicatio ns:Anxiety TAKE 1 TABLET BY MOUTH TWICE DAILY NEEDED FOR ANXIETY 60 tablet 1 06/04/2023 Active Active Problems Problem Noted Date Diagnosed Date Eustachian tube dysfunction, right 08/04/2021 Assessment & Plan (08/04/2021 1:31 PM EDT): She does feel a little bit of relief in the ear from the throbbing pain when she has a popping noise within the ear. With the absence of romana inflammation of the ear canal outer ear eardrum middle ear right-sided eustachian tube dysfunction secondary to a mild cold or allergen seems most likely. Open up the eustachian tube with Afrin nasal spray 2 sprays right nostril 3 times a day for no more than 3 to 5 days. Call tomorrow if this treatment does not help. We could consider then some Flonase. Osteopenia after menopause 03/12/2021 Overweight (BMI 25.0-29.9) 03/12/2021 Cyst of clavicle, right 06/01/2019 Elevated LDL cholesterol level 01/13/2019 Anxiety 12/17/2017 History of herpes labialis 12/17/2017 Ex-smoker 12/17/2017 Immunizations Immunization Administration Dates Next Due COVID-19 (Pre-08/30) Pfizer Vaccine, mRNA, PF ,01/25/2021 PPD Test 09/19/2014 Tdap 12/29/2011 Family History Medical History Relation Comments No Known Problems Daughter Cancer Father Heart disease Father Kidney disease Father Prostate cancer Father CV disease Mother Heart disease Mother Hypertension Sibling Bipolar disorder Sister 1 Bipolar disorder Sister 2 Depression Sister 3 No Known Problems Son 1 No Known Problems Son 2 Relation Status Comments Daughter Alive Father (Age 72) Mother (Age 69) Sibling Sister 1 Alive Sister 2 Alive Sister 3 Alive Son 1 Alive Son 2 Alive Social History Tobacco Use Types Packs/Day Years Used Date Smoking Tobacco: Former Cigarettes 0.5 20 0 11/20/1997 - 11/20/2017 Smokeless Tobacco: Never Alcohol Use Standard Drinks/Week Comments No 0 (1 standard drink = 0.6 oz pur e alcohol) rare wine cooler Child or Family Care Answer Date Record ed Do you have problems with on e of the following making it difficult for you to work, study, or receive health care? No 05/25/2022 Education Answer Date Recorded Are you interested in more education? Not on leelee e 05/30/2024 Are you concerned about learning? Not on file 05/30/2024 No 05/30/2024 No 05/30/2024 Food Answer Date Recorded Within the past 6 months we worried whether our food would run out before we got money to buy more. Never True 05/25/2022 Within the past 6 months the food we bought just didn't last and we didn't have enough money to get more. Never True Residential Stability Answer Date Recor ded What is your housing situation today? I have yohannes franco 05/25/2022 How many times have you moved in the past 12 mon ths? One time 05/25/2022 Paying for Meds Answer Date Recorded Do you have trouble paying for medicines? No 05/25/2022 Paying Utility Bills Answer Date Record ed Do you have trouble paying your heating or elect ricity bill? No 05/25/2022 Transportation Answer Date Recorded Has the lack of transportati on kept you from medical appointments or from getting medications? No 05/25/2022 Unemployment Answer Date Recorded Are you currently unemployed or working on a part-time or temporary basis, and looking for work? No 05/25/2022 Digital Access Answer Date Recorded No 04/03/2023 No 04/03/2023 Reliable internet access at home? Not on file 04/03/2023 Device with a working camera? Not on file Comments Unknown Sex and Gender Information Value Date Recorded Sex Assigned at Not on file Legal Sex Female 9:40 PM EDT Gender Identity Not on file Sexual Orientation Not on file Last Filed Vital Signs Vital Sign Reading Time Taken Comments Blood Pressure 118/82 05/27/2022 2:09 PM EDT Pulse 89 05/27/2022 2:09 PM EDT Temperature 36.6 C (97.8 F) 03/12/2021 10:31 AM EDT Respiratory Rate 16 05/27/2022 2:09 PM EDT Oxygen Saturation 98% 05/27/2022 2:09 PM EDT Inhaled Oxygen Concentration - - Weight 72.1 kg (159 lb) 08/04/2021 1:01 PM EDT Height 158.8 cm (5' 2.5 ) 05/27/2022 2:09 PM EDT Body Mass Index 29.04 08/04/2021 1:01 PM EDT Plan of Treatment Health Maintenance Due Date Last Done Comments SMOKING Hx and SMOKELESS TOBACCO SCREENING 1978 COLOGUARD 2010 COLONOSCOPY 2010 COLORECTAL CANCER SCREENING 2010 FIT TEST 2010 FOBT 2010 SIGMOIDOSCOPY 2010 VIRTUAL COLONOSCOPY 2010 PNEUMOCOCCAL VACCINES (50+ years) (1 of 1 - PCV) 2015 ZOSTER VACCINES (1 of 2) 2015 Adult Td,Tdap Booster 12/29/2021 12/29/2011 DEPRESSION SCREENING 05/25/2023 05/25/2022 PAP SMEAR 09/02/2023 09/02/2020, 08/29/2014 MAMMOGRAM 05/27/2024 05/27/2022, 12/10, 01/17/2019, Additional history exists COVID-19 VACCINE ( season) 2024 11/21/2021, 02/15/2021, 01/25/2021 LIPID PANEL 12/06/2025 12/06/2020, 11/08, 11/24/2018, Additional history exists HEPATITIS C SCREENING Completed 03/12/2021 HIV ONE-TIME SCREENING (18-65 YEARS) Completed 03/12/2021 HEPATITIS A VACCINES Aged Out No long er eligible based on patient's age to complete this topic HIB VACCINES Aged Out No longer eligi ble based on patient's age to complete this topic MENINGOCOCCAL VACCINES (ACWY) Aged Out No longer eligible based on patient's age to complete this topic MENINGOCOCCAL VACCINES (B) Aged Out N o longer eligible based on patient's age to complete this topic Medical Devices Not on file Procedures Procedure Name Priority Date/Time Associated Diagnosis Comments BI MAMMOGRAM SCREENING (BILATERAL) Routine 05/27/2022 3:00 PM EDT Encounter for screening mammogram for malignant neoplasm of breast HEPATITIS C ANTIBODY, QUALITATIVE Routine 03/12/2021 11:55 AM EDT Need for hepatitis C screening test LIPID PANEL Routine 12/06/2020 10:21 AM EST Elevated LDL cholesterol level HM PAP SMEAR FOR RESULT ENTRY ONLY Routine 09/02/2020 from Last 3 Months or Most Recently Relevant to Health Maintenance Results * Hepatitis C antibody, qualitative (03/12/2021 11:55 AM EDT) HCV NON-REACTIV E NON-REACTI VE [facility] Blood 03/12/2021 11:5 5 AM EDT 03/12/2021 12:01 PM EDT Justyna Taylor NP LAB BLOOD ORDERABLES Final Resu lt Performing Organization Address City/[facility]/ZIP Co de Phone Number [address] [address] * Mammogram Screening (Bilateral) (01/02/2021 6:14 PM EST) Anatomical Region Laterality Modality Breast Left, Breast Right, Breast Bilateral Bila teral Breast Screening Justyna Taylor NP IMG MG EXAMS Final Result * (ABNORMAL) Lipid panel (12/06/2020 10:21 AM EST) HDL 76 mg/dL [facility] Comment: Interpretation <40 mg/dL: Low HDL cholesterol (major risk factor for CHD) Greater than or equal to 60 mg/dL: High HDL cholesterol ( negative risk factor for CHD) HDL - cholesterol is affected by a number of factors, e.g. smoking, excerise, hormones, sex and age. CHOLESTEROL 236 0 - 240 mg/dL [facility] TRIGLYCERIDES 59 30 - 160 mg/dL [facility] LDL 148(H) 50 - 129 mg/dL [facility] Comment: LDL levels in terms of risk for coronary heart disease: <100 mg/dL: Optimal 100-129 mg/dL: Near or above optimal 130-159 mg/dL: Borderline high 160-189 mg/dL: High >190 mg/dL: Very High CARDIAC RISK RATIO 3.1(L) 3.3 - 4.4 C [facility] Blood 12/06/2020 10:2 1 AM EST 12/06/2020 10:23 AM EST Justyna Taylor NP LAB BLOOD ORDERABLES Final Resu lt Performing Organization Address City/[facility]/ZIP Co de Phone Number [address] [address] * HM PAP SMEAR FOR RESULT ENTRY ONLY (09/02/2020) us Historical Provider HEALTH MAINTENANCE Edited Result - Final from Last 3 Months or Most Recently Relevant to Health Maintenance [place] [address] [place] [address] HMO HMO O O HMO Care Teams Warper Tender Relationship Specialty Start Date End Date Unknown, Unknown, PCP - General 02/03/24 Justyna Taylor NP [email or web address] Historical LMR Provider 08/28/17 Jasmine Hood MD 05/27/22 Additional Source Comments The information contained in this document represents components of the legal health record. It is not the complete legal health record.[facility]
== END 2025-06-28 08:21 | disposition home or self-care (01) ==
LOC: HO.HOSX 08:20
DX: M19.012 Primary osteoarthritis, left shoulder (principal); M75.42 Impingement syndrome of left shoulder; M25.512 Pain in left shoulder; Z79.899 Other long term (current) drug therapy; Z79.1 Long term (current) use of non-steroidal anti-inflammatories (NSAID)
CPT/HCPCS: 73030

== ENCOUNTER 2025-06-28 13:25 | Outpatient (AMB) | payer OTHER, SELFPAY ==
[2025-06-28 13:36] VITALS: BMI 31.3
--- NOTE | 2025-06-28 13:36 | MHC.OFFVIS ---
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 Patient states pain began about a year ago. She describes the pain as soreness, primarily at the base of the shoulder. Pain worsens when she tries lifting objects or children at work. She is able to bring her arm to her back. She has tried stretching at home but no formal physical therapy. She is taking Ibuprofen and Meloxicam with some relief. Denies previous injuries or sugeries to the left shoulder. 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 Patient states pain began about a year ago. She describes the pain as soreness, primarily at the base of the shoulder. Pain worsens when she tries lifting objects or children at work. She is able to bring her arm to her back. She has tried stretching at home but no formal physical therapy. She is taking Ibuprofen and Meloxicam with some relief. Denies previous injuries or sugeries to the left shoulder. [facility] Medical History (Updated 06/28/25 @ 23:34 by YOLA Duran) Impaired fasting glucose Common bile duct dilatation Hepatic steatosis Pure hypercholesterolemia Low vitamin D level Fatigue Routine physical examination Bloating Decreased white blood cell count Left shoulder pain Dyslipidemia Anxiety Surgical History Hx of tonsillectomy H/O section Family History (Updated 11/13/24 @ 12:26 by Dawn Petty CMA) Father Prostate cancer Heart attack Heart disease Kidney disease Mother H/O angioplasty Heart disease Cardiovascular disease Other Bipolar disorder FH: mental illness HTN (hypertension) Social History Housing: Other (mobile home for over 55) Patient Tobacco Use Status: Former Tobacco user Cigarette Packs Per Day: 1 Years Smoked: 20 e-Cigarette/Vaping Use: Never Used Second Hand Smoke Exposure: No service: No Current occupational status: employed 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 Current occupational exposures/hazards: No Cognitive needs: No Hearing needs: No Vision needs: No Review of Systems Const All systems reviewed & are unremarkable except as noted in HPI and below Physical Exam Vital Signs: BMI result Body Mass Index 31.3 Extrem Other: Patient's left shoulder normal to inspection No erythema, ecchymosis, edema noted No lacerations, abrasions, open areas No evidence of infection Patient reports no tenderness to palpation of the left shoulder Patient is able to forward flex the left shoulder to approximately 120 degrees without difficulty External rotation to approximately 60 degrees bilaterally without difficulty 5/5 strength bilaterally empty can 5/5 strength bilaterally belly press Positive Irby of the left Negative Irby in the right Distal sensation intact Capillary refill brisk Results Reviewed Results Reviewed: X-rays obtained in the office today and independently reviewed by me, Theodore Levine PA-C, demonstrate some calcification of the shoulder tendons in addition to mild glenohumeral arthritis of the left shoulder. Assessment & Plan Assessment & Plan (1) Arthritis of left shoulder: Code(s): M19.012 - Primary osteoarthritis, left shoulder Category: Medical (2) Impingement syndrome of left shoulder: Code(s): M75.42 - Impingement syndrome of left shoulder Category: Medical Plan 1. Impingement syndrome of the left shoulder 2. Osteoarthritis of the left shoulder Patient is educated about these conditions Patient is educated about the typical treatment course At this time, PT referral placed for range of motion, strengthening, stabilization of the left shoulder in the setting of impingement syndrome and osteoarthritis Patient is educated she should do the exercises provided by PT every single day, not just when she is seen by therapy Patient is educated that if 6-8 weeks after starting physical therapy, she is experiencing no relief, she can call us for further evaluation and discussion of different treatment options and or further imaging Patient understands this and is amenable to this plan Follow-up as needed Orders: Orders XR shoulder LT min 2V Today M25.512 - Pain in left shoulder PT Evaluation and Treatment Today M19.012 - Primary osteoarthritis, left shoulder, M75.42 - Impingement syndrome of left shoulder Coding Level of Care Code New Pt Level 3 (01239) Diagnoses Arthritis of left shoulder M19.012 Impingement syndrome of left shoulder M75.42
== END 2025-06-28 13:54 | disposition home or self-care (01) ==
LOC: HO.HOS 13:26
PROVIDERS: PCP Physician Assistant Medical
DX: M19.012 Primary osteoarthritis, left shoulder (principal); M75.42 Impingement syndrome of left shoulder
CPT/HCPCS: 99203

== ENCOUNTER → 2025-06-28 13:27 | Outpatient (BNV) | payer OTHER, SELFPAY | PROVIDERS: Visit Provider Radiology Diagnostic Radiology | DX: M75.32 Calcific tendinitis of left shoulder (principal) | CPT/HCPCS: 73030 ==

== ENCOUNTER 2025-07-03 11:48 | Outpatient (REF) | payer OTHER, SELFPAY ==
--- OUTSIDE RECORDS SUMMARY | 2025-07-03 12:45 | XMS_ITS | Clinical Summary ---
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 Unavailable [phone] Jasmine Hood MD Unavailable Unavai lable [...] AM EDT) HCV NON-REACTIV E NON-REACTI VE [facility] Blood 03/12/2021 11:5 5 AM EDT 03/12/2021 12:01 PM EDT Justyna Taylor NP LAB BLOOD ORDERABLES Final Resu lt Performing Organization Address City/[facility]/ZIP Co de Phone Number [address] [address] * Mammogram Screening (Bilateral) (01/02/2021 6:14 PM EST) Anatomical Region Laterality Modality Breast Left, Breast Right, Breast Bilateral Bila teral Breast Screening Justyna Taylor NP IMG MG EXAMS Final Result * (ABNORMAL) Lipid panel (12/06/2020 10:21 AM EST) HDL 76 mg/dL [facility] Comment: Interpretation <40 mg/dL: Low HDL cholesterol (major risk factor for CHD) Greater than or equal to 60 mg/dL: High HDL cholesterol ( negative risk factor for CHD) HDL - cholesterol is affected by a number of factors, e.g. smoking, excerise, hormones, sex and age. CHOLESTEROL 236 0 - 240 mg/dL [facility] TRIGLYCERIDES 59 30 - 160 mg/dL [facility] LDL 148(H) 50 - 129 mg/dL [facility] Comment: LDL levels in terms of risk for coronary heart disease: <100 mg/dL: Optimal 100-129 mg/dL: Near or above optimal 130-159 mg/dL: Borderline high 160-189 mg/dL: High >190 mg/dL: Very High CARDIAC RISK RATIO 3.1(L) 3.3 - 4.4 C [facility] Blood 12/06/2020 10:2 1 AM EST 12/06/2020 10:23 AM EST Justyna Taylor NP LAB BLOOD ORDERABLES Final Resu lt Performing Organization Address City/[facility]/ZIP Co de Phone Number [address] [address] * HM PAP SMEAR FOR RESULT ENTRY ONLY (09/02/2020) us Historical Provider HEALTH MAINTENANCE Edited Result - Final from Last 3 Months or Most Recently Relevant to Health Maintenance [place] [address] [place] [address] HMO HMO O O HMO Care Teams Smoking Pipe Coater Relationship Specialty Start Date End Date Unknown, Unknown, PCP - General 02/03/24 Justyna Taylor NP [email or web address] Historical LMR Provider 08/28/17 Jasmine Hood MD 05/27/22 Additional Source Comments The information contained in this document represents components of the legal health record. It is not the complete legal health record.[facility]
--- OUTSIDE RECORDS SUMMARY | 2025-07-03 12:45 | XMS_ITS | Patient Health Record ---
Demographics Address [address] [place] [address] Mobile Email Address Preferred Language en Marital Status Mandaen Affiliation Unknown Race White Ethnic Group Not or Lati no Author Organization [facility]ja [facility]af[facility] [place] Address [address] [place] [address] Support Name Relationship Address Phone Donaldo Stiles Emergency Contact [address] [place] [address] Leonor Stiles Guarantor Unknown [phone] Care Team Providers Care Leather Lacer Name Role Phone Justyna Taylor NP Primary Care Provider Unavailabl e Black, Lara Unavailable [phone] Reason For Referral No Information Medications Medication [...] (LFT) 07/25/2012 *Liver Function Test (LFT) 11/24/2018 [id number] NAIL, 6 OR MORE 03/27/2013 [id number] Destruction, 1-14 11/24/2018 Insurance Providers Payer Name Payer Address Payer Phone Subscriber Number Group Number Insured Name Patient Relationship to Insured Coverage Start Date Coverage End Date [facility] [address] [place] [address] [id number] Donaldo Stiles Spouse - patient is the spouse of the insured Medical (General) History Medical History History ICD Code anxiety depression chicken pox Surgical History Surgery Date(Month/Year) section 07/28/1991 tonsillectomy and adenoidectomy 12/1969
[2025-07-03 14:13] LABS: MANUAL DIFF FLAG NO
[2025-07-03 14:20] LABS: Hematocrit 38.0 % (37.0-47.0); Hemoglobin 12.4 g/dl (12.0-16.0); Imm Gran Abs Auto 0.01 X10*3/uL (0.00-0.03); Imm Gran Pct Auto 0.3 % (0.0-0.4); Lymphocytes Absolute Auto 1.4 X10*3/uL (1.2-4.9); Mean Corpuscular HGB Conc 32.6 g/dl (31.0-35.0); Mean Corpuscular Hemoglobin 28.9 pg (27.0-33.0); Mean Corpuscular Volume 88.6 fL (80.0-98.0); NRBC Abs Auto 0.000 X10*3/uL (0.0-0.012); NRBC Pct Auto 0.0 /100WBC (0.0-0.2); Platelet Count 313 X10*3/uL (160-400); Red Blood Count 4.29 X10*6/uL (4.20-5.50); White Blood Count 4.0 X10*3/uL (4.8-10.8)
[2025-07-03 14:56] LABS: Alanine Aminotransferase 30 U/L (0-31); Aspartate Amino Transferase 28 U/L (5-31); Cholesterol 254 mg/dL (<200); HDL Cholesterol 64 mg/dL (>40); Triglycerides 63 mg/dL (<150)
[2025-07-03 14:59] LABS: Alanine Aminotransferase 30 U/L (0-31); Albumin Level 4.6 g/dL (3.5-5.0); Alkaline Phosphatase 62 U/L (39-117); Anion Gap 13 (12-20); Aspartate Amino Transferase 27 U/L (5-31); Blood Urea Nitrogen 17 mg/dL (9-16); Calcium 9.3 mg/dL (8.4-10.2); Carbon Dioxide 26 mmol/L (22-29); Chloride 107 mmol/L (96-108); Estimated Glomerular Filt Rate > 60; Iron 54 mcg/dL (30-160); Percent Iron Saturation 14 % (15-50); Potassium 4.5 mmol/L (3.3-5.1); Sodium 141 mmol/L (135-145); Total Iron Binding Capacity 384 mcg/dL (228-428); Total Protein 7.2 g/dL (6.5-8.0); Unsaturated Iron Binding 330 ug/dL
[2025-07-03 15:05] LABS: Ferritin 9 ng/mL (10-250)
[2025-07-03 15:32] LABS: Hemoglobin A1C 111.6329 umol/L; Total Hemoglobin (HGBA1C) 3207.5682 umol/L
[2025-07-04 08:30] LABS: HBS Num1 0.36 mIU/mL (0-7.99); HBc Num1 0.08 S/CO (0.00-0.79); HBsAGNum1 0.39 S/CO (0.00-0.99); Hepatitis B Surface Antigen Negative (Negative); ~HepC Num1 0.18 S/CO (0.00-0.79); ~Hepatitis B Surface Antibody NONREACTIVE (Nonreactive); ~Hepatitis C Antibody Nonreactive (Nonreactive)
[2025-07-07 18:18] LABS: Vitamin D 25-OH, D2 <4 ng/mL; Vitamin D 25-OH, D3 32 ng/mL; Vitamin D 25-OH, Total 32 ng/mL (30-100)
== END 2025-07-03 11:49 | disposition home or self-care (01) ==
LOC: HO.WFDLDS 11:48
PROVIDERS: Physician Assistant; Visit Provider Physician Assistant Medical
DX: K76.0 Fatty (change of) liver, not elsewhere classified (principal); K83.8 Other specified diseases of biliary tract; R79.89 Other specified abnormal findings of blood chemistry; E78.5 Hyperlipidemia, unspecified; D72.819 Decreased white blood cell count, unspecified; E78.00 Pure hypercholesterolemia, unspecified
CPT/HCPCS: 36415; 80053; 80061; 82306; 82728; 83036; 83540; 84450; 84460; 85025; 86704; 86706; 86803; 87340

== ENCOUNTER 2025-07-12 10:57 | Outpatient (AMB) | payer OTHER, SELFPAY ==
--- NOTE | 2025-07-12 11:03 | MHC.PC.OV ---
Vital Signs 07/12/25 11:07 Height 5 ft 2.32 in Weight 173 lb 2 oz BMI 31.3 BP 118/82 Blood Pressure Location Rt brachial Position Sitting Respiration 16 Pulse 92 Pulse Source Pulse Oximeter Temp 97.4 F Temp Source Temporal Artery Scan Pulse Oximetry (%) 95 Oxygen Delivery Method Room Air Intake Visit Reasons: routine check up Intake Note: Leonor presents in the office today to follow up on her recent labs. Allergies No Known Allergies Allergy (Verified 07/12/25 11:05) Tobacco use date assessed: 07/12/25 Dental Screening Dental Screen Date: 07/12/25 Did you have a dental visit in the last 12 months?: Yes Did you have a dental problem in the last 6 months where you did not have access to dental care?: No Was dental information given to patient?: Patient has dentist HPI HPI Comments History of Present Illness Details This is a 59-year-old female with a past medical history of dyslipidemia, generalized anxiety disorder and panic attacks presenting for follow up to review her lab results. Dyslipidemia-we discussed that her 10 year ASCVD risk score is elevated. She does not smoke. Her mother has a history of heart disease. The patient denies chest pain and shortness of breath. She admits that she does need to start exercising more. She is making some changes to her diet. LDL decreased from 189-178. HDL is 64 and triglycerides 63. She smoked 1 pack per day for 12 years. She does not qualify for LDCT. The patient was evaluated by orthopedics for her left shoulder pain. She was referred to physical therapy, but she did not hear about scheduling an appointment. She had a shoulder x-ray on 06/28/2025 which showed calcific tendinopathy and osteoarthritis. Her white blood cell count has been mildly decreased. 01/24/25 4100 05/07/25 4200 07/03/2025 4000 She denies infections, fevers, chills, night sweats, fatigue or unexplained weight loss. No swollen glands or bleeding or bruising. Her platelet count is normal as well as her white blood cell count differential and she is not anemic. She is on psychiatric medications . She believes that she has had a decreased white blood cell count on and off for years. Her anxiety is stable. 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 She is on venlafaxine gabapentin and clonazepam. She has a history of panic attacks which are under control on this regimen. IFG-A1c is 5.3%. The patient was referred to [facility] for evaluation of common bile duct dilatation, hepatic steatosis and bloating. Note requested. ROS: Constitutional: No unexplained weight loss, fever, chills, fatigue or night sweats. Eyes: No vision changes, blurry vision, double vision, eye pain, eye redness, eye discharge. Respiratory: No shortness of breath, cough or sputum production. Denies hemoptysis. Cardiovascular: No chest pain, chest pressure or chest discomfort. No palpitations or pedal edema. Gastrointestinal: No anorexia, nausea, vomiting or diarrhea. No abdominal pain or blood in stool. +bloating. Neurologic: No headache, dizziness, syncope, unilateral weakness, ataxia, numbness or tingling in the extremities. Musculoskeletal: +left shoulder pain Hematologic/Lymphatics: No bleeding or bruising. No painful lymph nodes. Endocrine: No cold or heat intolerance. No polyuria or polydipsia. Psychiatric: See HPI Physical exam: Constitutional: Alert, in no distress. Neck: Supple, Full range of motion. No lymphadenopathy. No palpable thyroid masses. Respiratory: Clear to auscultation. Cardiovascular: S1 S2 regular. No murmurs. No carotid bruits. Neurologic: No focal neurological deficits. Abdomen: Soft, nontender, no palpable masses. Extremities: Warm and well perfused. No clubbing, cyanosis or edema. Psychiatric: Normal mood and affect [facility] Medical History (Updated 06/28/25 @ 23:34 by YOLA Duran) Impaired fasting glucose Common bile duct dilatation Hepatic steatosis Pure hypercholesterolemia Low vitamin D level Fatigue Routine physical examination Bloating Decreased white blood cell count Left shoulder pain Dyslipidemia Anxiety Surgical History Hx of tonsillectomy H/O section Family History Father Prostate cancer Heart attack Heart disease Kidney disease Mother H/O angioplasty Heart disease Cardiovascular disease Other Bipolar disorder FH: mental illness HTN (hypertension) Social History (Updated 07/12/25 @ 11:06 by Blanca Alejandre MA) Housing: Other (mobile home for over 55) Alcohol intake: never Patient Tobacco Use Status: Former Tobacco user Cigarette Packs Per Day: 1 Years Smoked: 20 e-Cigarette/Vaping Use: Never Used Second Hand Smoke Exposure: No service: No Current occupational status: employed 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 Current occupational exposures/hazards: No Cognitive needs: No Hearing needs: No Vision needs: No Questionnaire Thrive Questionnaire Date Thrive assessed: 01/25/25 I am a: Patient What is your living situation today?: I have a steady place to live Within the past 12 months, did the food you bought not last and you didn't have the money to get more?: Never true Within the past 12 months, did you worry whether your food would run out before you got money to buy more?: Never true Do you have trouble paying for medicines?: No Do you have trouble getting transportation to medical appointments?: No Do you have trouble paying your heating and electricity bill?: No Do you have trouble taking care of your child, family member or friend?: No Do you have trouble with day-to-day activities such as bathing, preparing meals, shopping, managing finances, etc.?: No Are you currently unemployed and looking for a job?: No Are you interested in more education?: No Please select the resources that you would like help with: None Currently or been in a relationship where the following occur: No concerns reported THRIVE Score: 0 CAROL-7 AMB Questionnaire CAROL-7 Date CAROL - 7 assessed: 01/25/25 Source: Developed by Drs. Sage Almaraz, Cici Nunez, Demetrius Harris and colleagues, with an educational jovanny from [employer]. Physical exam (Primary Care) Vital Signs: Last Vital Signs Temp 97.4 F 07/12/25 11:07 Pulse 92 07/12/25 11:07 Resp 16 07/12/25 11:07 BP 118/82 07/12/25 11:07 Pulse Ox 95 07/12/25 11:07 Oxygen Delivery Method Room Air 07/12/25 11:07 BMI result Body Mass Index 31.3 Tobacco/Smoking Status: Tobacco use Status Tobacco use date assessed 07/12/25 07/12/25 11:09 Patient Tobacco Use Status Former Tobacco user 07/12/25 11:06 e-Cigarette/Vaping Use Never Used 07/12/25 11:06 Thrive Assessment: Date of Thrive Assessment Date Thrive assessed 01/25/25 07/12/25 11:04 Currently or been in a relationship where the following occur: No concerns reported Coding Level of Care Code Est Pt Level 4 (40188) Complex EM visit Add On G2211 Diagnoses Impaired fasting glucose R73.01 Hepatic steatosis K76.0 Common bile duct dilatation K83.8 Decreased white blood cell count D72.819 Impingement syndrome of left shoulder M75.42 Pure hypercholesterolemia E78.00 Anxiety F41.9 Assessment & Plan Assessment & Plan (1) Impaired fasting glucose: Code(s): R73.01 - Impaired fasting glucose Category: Medical Plan: Recommended low carbohydrate low sugar diet. Exercise to promote healthy weight. Avoid alcohol. (2) Hepatic steatosis: Code(s): K76.0 - Fatty (change of) liver, not elsewhere classified Category: Medical Plan: Gastroenterology note requested. Avoid alcohol. Recommend avoidance of processed foods. Follow a low-cholesterol diet. (3) Common bile duct dilatation: Code(s): K83.8 - Other specified diseases of biliary tract Category: Medical Plan: Request gastroenterology note. (4) Decreased white blood cell count: Code(s): D72.819 - Decreased white blood cell count, unspecified Category: Medical Plan: We discussed there may be benign cause for decreased white blood cell count. Psychiatric medications may be related to this. Since it is persistently decreased I will refer to Hematology for further evaluation to be cautious. (5) Impingement syndrome of left shoulder: Code(s): M75.42 - Impingement syndrome of left shoulder Category: Medical Plan: Provided with a number to contact physical therapy. (6) Pure hypercholesterolemia: Code(s): E78.00 - Pure hypercholesterolemia, unspecified Category: Medical Plan: Patient declines cholesterol-lowering medication. We discussed elevated cholesterol is a risk factor for cardiovascular disease. I recommended a coronary artery calcium CT. She will think about it, but she deferred it today. Recommended Mediterranean diet and exercising to promote weight loss. (7) Anxiety: Code(s): F41.9 - Anxiety disorder, unspecified Category: Medical Plan: Stable. Continue current regimen. Plan Follow up in 6 months with repeat labs done prior to visit. Orders: Orders Comprehensive Met. Panel 6 Months E78.5 - Hyperlipidemia, unspecified, R73.01 - Impaired fasting glucose Hemoglobin A1c 6 Months E78.5 - Hyperlipidemia, unspecified, R73.01 - Impaired fasting glucose, R73.9 - Hyperglycemia, unspecified Complete Blood Count Auto Diff 6 Months E78.5 - Hyperlipidemia, unspecified, R73.01 - Impaired fasting glucose Lipid Panel 6 Months E78.5 - Hyperlipidemia, unspecified, R73.01 - Impaired fasting glucose Referrals Hematology & Oncology Referral D72.819 - Decreased white blood cell count, unspecified
[2025-07-12 11:07] VITALS: BP 118/82; PULSE 92; RESP 16; TEMP 36.3; O2SAT 95; BMI 31.3
--- OUTSIDE RECORDS SUMMARY | 2025-07-12 12:32 | XMS_ITS | Patient Health Record ---
Demographics Address [address] [place] [address] Mobile Email Address Preferred Language en Marital Status Buddhism Affiliation Unknown Race White Ethnic Group Not or Lati no Author Organization [facility] Benja gustafson Salyer Address [address] [place] [address] Support Name Relationship Address Phone Donaldo Stiles Emergency Contact [address] [place] [address] Leonor Stiles Guarantor Unknown [phone] Care Team Providers Care Machine Feller Name Role Phone Justyna Taylor NP Primary Care Provider Unavailabl e Black, Lara Unavailable [phone] Reason For Referral No Information Medications Medication [...] (LFT) 07/25/2012 *Liver Function Test (LFT) 11/24/2018 [id number] NAIL, 6 OR MORE 03/27/2013 [id number] Destruction, 1-14 11/24/2018 Insurance Providers Payer Name Payer Address Payer Phone Subscriber Number Group Number Insured Name Patient Relationship to Insured Coverage Start Date Coverage End Date [facility] [address] [place] [address] [id number] Donaldo Stiles Spouse - patient is the spouse of the insured Medical (General) History Medical History History ICD Code anxiety depression chicken pox Surgical History Surgery Date(Month/Year) section 07/28/1991 tonsillectomy and adenoidectomy 12/1969
--- OUTSIDE RECORDS SUMMARY | 2025-07-12 12:33 | XMS_ITS | Clinical Summary ---
Author Organization [facility] Address [address] [facility] [address] [place] [address] Phone Care Team Providers Care Assembler [employer] Name Role Phone Justyna Taylor Mohsen METALSMITH HELPER Unavailable [phone] Jasmine Hood MD Unavailable Unavai lable [...] 05/27/2024 05/27/2022, 12/10, 01/17/2019, Additional history exists INFLUENZA VACCINE (#1) 2025 COVID-19 VACCINE ( season) 2025 11/21/2021, 02/15/2021, 01/25/2021 LIPID PANEL 12/06/2025 12/06/2020, [...] AM EDT) HCV NON-REACTIV E NON-REACTI VE [facility] Blood 03/12/2021 11:5 5 AM EDT 03/12/2021 12:01 PM EDT Justyna Taylor NP LAB BLOOD ORDERABLES Final Resu lt Performing Organization Address City/[facility]/ZIP Co de Phone Number [address] [address] * Mammogram Screening (Bilateral) (01/02/2021 6:14 PM EST) Anatomical Region Laterality Modality Breast Left, Breast Right, Breast Bilateral Bila teral Breast Screening Justyna Taylor NP IMG MG EXAMS Final Result * (ABNORMAL) Lipid panel (12/06/2020 10:21 AM EST) HDL 76 mg/dL [facility] Comment: Interpretation <40 mg/dL: Low HDL cholesterol (major risk factor for CHD) Greater than or equal to 60 mg/dL: High HDL cholesterol ( negative risk factor for CHD) HDL - cholesterol is affected by a number of factors, e.g. smoking, excerise, hormones, sex and age. CHOLESTEROL 236 0 - 240 mg/dL [facility] TRIGLYCERIDES 59 30 - 160 mg/dL [facility] LDL 148(H) 50 - 129 mg/dL [facility] Comment: LDL levels in terms of risk for coronary heart disease: <100 mg/dL: Optimal 100-129 mg/dL: Near or above optimal 130-159 mg/dL: Borderline high 160-189 mg/dL: High >190 mg/dL: Very High CARDIAC RISK RATIO 3.1(L) 3.3 - 4.4 C [facility] Blood 12/06/2020 10:2 1 AM EST 12/06/2020 10:23 AM EST Justyna Taylor NP LAB BLOOD ORDERABLES Final Resu lt Performing Organization Address City/[facility]/ZIP Co de Phone Number [address] [address] * HM PAP SMEAR FOR RESULT ENTRY ONLY (09/02/2020) us Historical Provider HEALTH MAINTENANCE Edited Result - Final from Last 3 Months or Most Recently Relevant to Health Maintenance Insurance [place] [address] [place] [address] HMO O O O HMO Care Teams As[employer] Relationship Specialty Start Date End Date Unknown, Unknown, PCP - General 02/03/24 Justyna Taylor NP [email or web address] Historical LMR Provider 08/28/17 Jasmine Hood MD 05/27/22 Additional Source Comments The information contained in this document represents components of the legal health record. It is not the complete legal health record.[facility]
== END 2025-07-12 11:33 | disposition home or self-care (01) ==
LOC: HO.HMCFM 10:58
PROVIDERS: PCP Physician Assistant Medical; Visit Provider Physician Assistant Medical
DX: R73.01 Impaired fasting glucose (principal); K76.0 Fatty (change of) liver, not elsewhere classified; K83.8 Other specified diseases of biliary tract; D72.819 Decreased white blood cell count, unspecified; M75.42 Impingement syndrome of left shoulder; E78.00 Pure hypercholesterolemia, unspecified; F41.9 Anxiety disorder, unspecified

== ENCOUNTER → 2025-08-03 13:13 | Outpatient (BNV) | payer OTHER, SELFPAY | PROVIDERS: PCP Physician Assistant Medical; Referring Provider Physician Assistant Medical; Visit Provider Nurse Practitioner Family | DX: D61.818 Other pancytopenia (principal) | CPT/HCPCS: 99213; 99499 ==